=== PATIENT | female | born 1940 | race Caucasian/White ===

== ENCOUNTER 2019-07-17 07:26 | Inpatient (IN) | payer MEDICARE ==
[~2019-07-17] VITALS: Ht 160 cm; Wt 57.7 kg
[~2019-07-17 07:26] MED LIST: ALBUTEROL SULFAT2 MG PO; ALBUTEROL SULFAT4 MG PO; ALBUTEROL SULFAT8 MG; ASPIRIN EC81 M1 PO; ASPIRIN325 PO; ATORVASTATIN CA40 MG PO; ATROVENT30 ML; DILTIAZEM HCL60 MG PO; FLEXERIL PO; FORADIL12 MCG; FORMOTEROL FUMAR1 GM INH; FUROSEMIDE 40 M40 MG PO; GENTAMICIN SU3 MG/ML OP; IMDUR 30 MG TAB30 M1 PO; IPRAT-ALBUT 0.5-3 ML INH; IRON325 PO; LANOXIN 0.120.125 M1 PO; LANOXIN 0.120.125 M2 PO; LANOXIN 0.250.25 M1 PO; LEVAQUIN 500 M500 M3 PO; MIRALAX17 GM PO; MULTIVITAMINS PO; PEPCID AC20 M1 PO; PLAVIX 75 MG TA75 M1 PO; PREDNISONE 10 M10 M1; PREDNISONE 10 M10 M1 PO; PREDNISONE 20 M20 M1 PO; PROAIR HFA8.5 GM INH; PROTONIX40 M2 PO; QVAR HFA 440 MCG/UN1; QVAR HFA 880 MCG/UN1; RANEXA 500 MG500 M1 PO; SINGULAIR 10 MG10 M1 PO; TOPROL XL50 MG; ULTRAM 50MG TAB50 MG PO; VERAPAMIL HCL 880 M1 PO; [UNRECOGNIZED DRUG - OTHER]
[2019-07-17 07:29] VITALS: BP 139/67
[2019-07-17] MEDS ORDERED: RAYOS5 MG PO (07:36)
[2019-07-17 08:09] LABS: HEMATOCRIT 29.4 % (37.0-47.0); HEMOGLOBIN 9.8 gm/dL (12.0-15.0); MCH 30.6 pg (26.0-34.0); MCHC 33.4 g/dL (28.0-37.0); MCV 91.7 fL (80.0-100.0); MPV 6.6 fl. (7.2-11.1); NUCLEATED RBCS 0 /100WBC; PLATELET COUNT* 386 thou/uL (150-400); RBC 3.21 mil/uL (4.20-5.00); RDW-CV 16.1 % (10.5-14.5); WBC 19.3 thou/uL (4.0-11.0)
--- NOTE | 2019-07-17 08:18 | NUR ---
PT'S LEFT ARM WRAPPED IN WARM BLANKET. O2 SAT ELEVATED TO 94%.
[2019-07-17 08:19] LABS: APTT 22.9 Seconds (25.0-31.3); PROTIME 9.8 Seconds (9.20-11.50)
[2019-07-17 08:31] LABS: CALCIUM 9.2 mg/dL (8.5-10.1); CREATININE 0.8 mg/dL (0.6-1.3); POTASSIUM 3.9 mmol/L (3.5-5.1)
[2019-07-17 08:41] LABS: TOTAL BILIRUBIN 0.1 mg/dL (<0.1-1.0); TOTAL PROTEIN 6.3 g/dL (6.4-8.2)
--- NOTE | 2019-07-17 08:41 | NUR ---
PT TAKEN BEDSIDE CAMODE PER REQUEST AND ASSISTED WITH GETTING ON IT AND BACK IN BED. PT CONNECTED TO O2 AND STRIP CATCHER.
[2019-07-17 08:48] LABS: ABSOLUTE LYMPHOCYTES 1.4 thou/uL (0.8-5.3); ABSOLUTE MONOCYTES 0.6 thou/uL (0.0-1.2); ABSOLUTE NEUTROPHILS 17.4 thou/uL (1.6-8.1)
[2019-07-17 08:49] LABS: ANISOCYTOSIS Occasional; PLATELET ESTIMATE ADEQUATE
[2019-07-17 09:20] VITALS: BP 139/50
[2019-07-17 11:00] VITALS: BP 130/51
[2019-07-17 13:00] VITALS: BP 133/55
[2019-07-17] MEDS ORDERED: SYMBICORT160 MCG/4. INH (14:09)
[2019-07-17] MEDS ORDERED: LOPRESSOR50 MG PO (14:10)
[2019-07-17] MEDS ORDERED: KLOR-CON 10 ER10 MEQ PO (14:10)
[2019-07-17 17:51] VITALS: BP 147/74
--- NOTE | 2019-07-17 18:45 | NUR ---
PT A/O. TELE TRACKING SINUS ARRHYTHMIA. PT EXTREMELY DYSPNEIC WITH VERY MINIMAL EXERTION. PT HAD EPISODE OF NON SUSTAINED SVT THIS EVENING ASSOCIATED WITH SOA FROM JUST TURNINIG OVER IN BED- MD NOTIFIED. EDUCATED ON SAFETY AND PLAN OF CARE. PLEASE SEE ASSESSMENT FOR ADDITIONAL INFORMATION. WILL CONT TO MONITOR
[2019-07-17 20:26] VITALS: BP 125/50
[2019-07-18] VITALS (7 sets, daily range): BP systolic 128–170; BP diastolic 43–84
[2019-07-18 04:56] LABS: ABSOLUTE LYMPHOCYTES 0.3 thou/uL (0.8-5.3); ABSOLUTE MONOCYTES 0.2 thou/uL (0.0-1.2); ABSOLUTE NEUTROPHILS 11.9 thou/uL (1.6-8.1); BASOPHILS 0.1 %; HEMATOCRIT 28.8 % (37.0-47.0); HEMOGLOBIN 9.5 gm/dL (12.0-15.0); LYMPHOCYTES 2.5 %; MCH 30.4 pg (26.0-34.0); MCHC 33.1 g/dL (28.0-37.0); MCV 91.8 fL (80.0-100.0); MONOCYTES 1.7 %; MPV 6.8 fl. (7.2-11.1); NUCLEATED RBCS 0 /100WBC; PLATELET COUNT* 399 thou/uL (150-400); POLYS 95.7 %; RBC 3.14 mil/uL (4.20-5.00); RDW-CV 15.9 % (10.5-14.5); WBC 12.4 thou/uL (4.0-11.0)
[2019-07-18 05:10] LABS: CALCIUM 9.1 mg/dL (8.5-10.1); CREATININE 0.8 mg/dL (0.6-1.3); POTASSIUM 4.1 mmol/L (3.5-5.1)
--- NOTE | 2019-07-18 06:54 | NUR ---
PT IS ABLE TO COMMUNICATE HER NEEDS TO STAFF EFFECTIVELY. SHE HAS DENIED THE NEED FOR PAIN MEDICATION UP TO THIS TIME. CODE STATUS IS DNR. PT IS SOA WITH EXERTION BUT IS ABLE TO TRANSFER TO [facility]. PO CARDIZEM, BUT HR DOES STILL GET VERY TACHY AT TIMES.
--- NOTE | 2019-07-18 11:09 | EKG ---
[place] [address] ELECTROCARDIOGRAM REPORT Name: MALIHA CLAYTON Room: [address] ADM IN .R.#: [id number] Admission: 07/17/19 Attend Phys: John Waters MD Discharge: Date of : 44 Report #: [id number] THIS REPORT FOR: //name// [facility] ED Test Date: 2019-07-17 Test Time: 07:33:00 Pat Name: MALIHA CLAYTON Department: Room: [facility] Gender: F Cognos Bi Administrator: XIMENA : 1940 Requested By: Lev Rea Order Number: [id number] MD: Jesse Ta Measurements Intervals [place] Rate: 103 P: 95 AL: 168 QRS: 45 QRSD: 83 T: 48 QT: 307 QTc: 402 Interpretive Statements Sinus tachycardia Atrial premature complexes Borderline ST depression, diffuse leads Compared to ECG 02/05/2013 08:44:10 Sinus rhythm no longer present Electronically Signed On 07-18-2019 11:09:08 CDT by Jesse Ta [email or web address] <ELECTRONICALLY SIGNED> By: Jesse Ta MD, FACC 07/18/19 1109 0733 0733 Jesse Ta MD, FAC /EPI
--- NOTE | 2019-07-18 11:50 | NUR ---
MET WITH PT AND SPOUSE TO DISCUSS HOME SITUATION/DC PLANNING. PT LIVES WITH SPOUSE. HE ASSISTS HER WITH ADLS AND DOES COOKING, CLEANING, SHOPPING. PT USES WALKER, W/C, BSC AND O2 AND NEB THRU [place]. SHE TRIES TO DO MUCH SHE CAN FOR HERSELF. HAS HAD HH IN PAST BUT NOT CURRENT. DISCUSSED PALLIATIVE CARE VS HOSPICE WITH HER. SHE IS INTERESTED IN PALLIATIVE CARE AND AWARE THAT IF SHE DECIDES TO GO TO HOSPICE, THAT CAN HAPPEN. OPTIONS GIVEN AND CHOSE [facility]. CALLED AND FAXED REFERRAL TO [facility], SOMEONE FROM THEIR AGENCY WILL MEET WITH PT THIS AFTERNOON TO DISCUSS FURTHER.
--- NOTE | 2019-07-18 17:00 | EKG ---
[place] [address] ELECTROCARDIOGRAM REPORT Name: MALIHA CLAYTON Room: [address] ADM IN M.R.#: [id number] Admission: 07/17/19 Attend Phys: John Waters MD Discharge: Date of : 44 Report #: [id number] THIS REPORT FOR: //name// [facility] Test Date: 2019-07-18 Test Time: 12:15:21 Pat Name: MALIHA CLAYTON Department: Room: [address] Gender: F Certification And Selection Specialist: : 1940 Requested By: John Waters Order Number: [id number] Reading MD: Jesse Ta Measurements Intervals [place] Rate: 134 P: 87 ME: 143 QRS: 56 QRSD: 83 T: 55 QT: 307 QTc: 459 Interpretive Statements Sinus tachycardia Multiform ventricular and supraventricular premature complexes ST depression, probably rate related Compared to ECG 07/17/2019 07:33:00 Ventricular premature complex(es) now present Electronically Signed On 07-18-2019 17:00:03 CDT by Jesse Ta [email or web address] <ELECTRONICALLY SIGNED> By: Jesse Ta MD, FACC 07/18/19 1700 1215 1215 Jesse Ta MD, [facility] /EPI
[2019-07-19 00:48] VITALS: BP 135/39
[2019-07-19 04:17] VITALS: BP 130/47
--- NOTE | 2019-07-19 05:18 | NUR ---
PT IS ABLE TO COMMUNICATE HER NEEDS TO STAFF EFFECTIVELY. CURRENT PAIN MEDICATION REGIMEN HAS BEEN ADEQUATE FOR CONTROLLING HER PAIN UP TO THIS TIME. CARDIZEM GTT MAINTAINED THROUGHOUT THIS SHIFT AND UP TO THIS TIME; TOLERATED WELL BY PT THUS FAR. CODE STATUS IS DNR.
[2019-07-19 08:00] VITALS: BP 147/55
--- NOTE | 2019-07-19 08:02 | CON ---
[address] [address] CONSULTATION Name: MALIHA CLAYTON Room: [address] IN M.R.#: [id number] Admission: 07/17/19 Attend Phys: John Waters MD Discharge: Date of : 44 Report #: [id number] THIS REPORT FOR: //name// CC: John Nelsongs REQUESTING PHYSICIAN: John Waters MD REASON FOR CONSULTATION: COPD exacerbation, abnormal CT chest. DISCUSSION: The patient is a very pleasant 78-year-old woman who is well known to me. 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 She is O2, though not been steroid dependent in the past. However, after her more recent office visit, I had provided her with a taper. Plans were for her to continue with chronic steroid use in attempts to help with some of her chronic dyspnea. She presented to the Emergency Department here early yesterday morning. Had been feeling more short of breath. She was also having sensation of tachycardia and palpitations. Does have a known history of arrhythmias. She was evaluated in the ED. O2 saturations were adequate on O2 at 2 liters per nasal cannula. It is her baseline. She will increase it when she is exerting herself. She had a chest x-ray done, which revealed what appeared to be a mass on the left side. She has a CT angiogram done, which did confirm the presence of a mass. There were smaller nodules noted in the lungs as well as changes with the adrenal glands, which all could be consistent with a primary lung cancer with evidence of metastatic disease. At the time I saw her this morning, she is marginally better. Still fairly dyspneic. She has had some cough, not bringing up much in the way of mucus which she is bringing up is white. No hemoptysis. Does deny chest pain, though she has had some pain in the mid part of her back, primarily over the mid thoracic area. I do not have any recent spirometry on her. However, studies done several years ago were consistent with a very severe obstructive process with her FEV1 of 0.8 with a ratio of 37%. She has been through pulmonary rehab in the past. In the past, there was concern that she may have a nodule or an early malignancy noted on her x-rays. However, she has opted to forego any followup or evaluation of that. several years since she had any imaging studies done. We have revisited that decision with every office visit to ensure we were continuing to honor her request. At baseline, she is a DNR, though has not been enrolled in hospice care. has been mentioned to [place] [address] CONSULTATION Name: MALIHA CLAYTON Room: [address] IN [facility].#: [id number] Admission: 07/17/19 Attend Phys: John Waters MD Discharge: Date of : 44 Report #: [id number] I saw her in the office fairly recently, she was more dyspneic. Did have her take a tapering course of prednisone. When she completed that which was just last weekend, she did start prednisone on Thursday, Thursday and Thursday. I believe that is 10 mg dose. She has not had any actual chest pain. However, has had some pain in her back. She has had a history of osteoporosis and compression fractures in the past. Appetite has been only fair. No vomiting. She has had some mild diarrhea. She has lost some additional weight at home. Has not had any hemoptysis. At home, she is on the prednisone as noted. Does do DuoNeb at least 4 times a day, occasionally more. She supplements that with a rescue inhaler (ProAir). She is also on albuterol 2 mg daily twice a day; budesonide, unknown strength twice a day and O2 baseline is 2 liters, but it is increased up to between 4-6 when she is exerting herself. PAST MEDICAL HISTORY: Besides the severe COPD, remarkable for atrial arrhythmias. Does follow with survey director periodically as well, has had GI bleeding, coronary artery disease, chronic back pain due in part to compression fractures, Raynaud's phenomenon. SOCIAL HISTORY: She is . Quit smoking greater than 10 years ago. FAMILY HISTORY: Positive for cancer and lung disease. REVIEW OF SYSTEMS: Complete ROS was done. Note positives above. Poor appetite. She has lost some weight, though it is not clear how much. No recent vomiting. Has had some diarrhea. She does state up-to-date with immunizations. Family members are good at not exposing her to any illnesses. She is able to walk distances around her home until she was more short of breath last several days. When she is out, will utilize a wheelchair. Did not note any lower extremity edema. Does have a sensation of her heart racing. No anterior chest pain, it has all been in her back. No syncopal episodes. LABORATORY AND X-RAY FINDINGS: At [facility], her last echocardiogram was done 6 years ago. At that time, she had preserved systolic function. Had grade 1 diastolic dysfunction. No significant valvular heart disease. No blood gases have been done this admission. White blood cell count initially 19,300 down to 12.4 today. Hemoglobin 9.5, hematocrit of 28.8, platelets 399,000. X-rays and CT chest were reviewed. Chest x-ray suggests a large left lung mass. This is confirmed on CT angiogram. Does have a large left suprahilar mass. Smaller nodules are noted primarily in the left lung field. Emphysematous changes. Bilateral adrenal gland masses. Does have chronic compression fractures noted. IMPRESSION: [place] [address] CONSULTATION Name: MALIHA CLAYTON Room: [address] IN [facility].#: [id number] Admission: 07/17/19 Attend Phys: John Waters MD Discharge: Date of : 44 Report #: [id number] 1. Chronic obstructive pulmonary disease exacerbation. Baseline has very severe disease. She has been O2 dependent for quite some time and has been becoming steroid dependent. 2. Left suprahilar mass. Most likely has a metastatic lung cancer. She and I have had multiple discussions in the office. She had declined followup imaging, not wishing to pursue any aggressive measures if a worrisome process was identified. She continues to feel strongly about that. 3. History of gastrointestinal bleed. RECOMMENDATIONS: 1. Continue aggressive bronchodilator regimen including IV steroids. 2. Rediscussed current CT chest findings with her. She and her are aware, certainly worrisome for malignant process. As per previous discussions and she reiterated today, does not wish to undergo any invasive procedures or additional evaluation. 3. Discussed post-hospital care. At some point, she will be a candidate for hospice care and that is the approach she wishes. She is already a DNR and has been so for quite some time. Remains emphatic but that is to be honored. I think she would be an excellent candidate for palliative care in the community. Would allow her to transition over to hospice and that seems appropriate for her. <ELECTRONICALLY SIGNED> By: Rayne Rodriguez MD 07/19/19 0802 1250 1400Maraleks Rodriguez MD /nt
[2019-07-19 12:22] VITALS: BP 129/59
[2019-07-19 16:54] VITALS: BP 180/74
--- NOTE | 2019-07-19 17:57 | NUR ---
ASSUSSMED CARE OF PT APPROX 0730. REASSESSMENT COMPLETED CHARTED. MEDICATIONS GIVEN CHARTED. PT WAS VERY SOA THIS AM. PLACED CALL TO RESPIRATORY APPROX 0900, RT STATED THEY WERE GETTING MEDICATIONS FOR PT. APPROX 1000 PLACED ANOTHER CALL TO RT FOR BREATHING TX FOR PT. DISCUSSED WITH PHYSICAN PTS STATUS, NEW ORDERS PLACED, MEDICATION GIVEN. PT RECIEVED BREATHING TX. RESPIRATORY STATUS HAD SOME IMPROVEMENT AFTER BREATHING TX. PTS RESPIRATORY STATUS HAD IMPROVEMENT WITH LOW DOSE MORPHINE, GIVEN NEEDED. SAFTEY PRECAUTIONS IN PLACE. CALL LIGHT WITHIN REACH. HOURLY ROUNDING FOR NEEDS AND SAFTEY.
[2019-07-20 00:39] VITALS: BP 125/50
[2019-07-20 04:00] VITALS: BP 149/44
[2019-07-20 05:29] LABS: ABSOLUTE LYMPHOCYTES 0.1 thou/uL (0.8-5.3); ABSOLUTE MONOCYTES 0.6 thou/uL (0.0-1.2); ABSOLUTE NEUTROPHILS 9.3 thou/uL (1.6-8.1); HEMATOCRIT 26.1 % (37.0-47.0); HEMOGLOBIN 8.8 gm/dL (12.0-15.0); LYMPHOCYTES 1.4 %; MCH 30.6 pg (26.0-34.0); MCHC 33.7 g/dL (28.0-37.0); MCV 90.7 fL (80.0-100.0); MONOCYTES 5.8 %; MPV 6.8 fl. (7.2-11.1); NUCLEATED RBCS 0 /100WBC; PLATELET COUNT* 343 thou/uL (150-400); POLYS 92.8 %; RBC 2.88 mil/uL (4.20-5.00); RDW-CV 15.8 % (10.5-14.5); WBC 10.1 thou/uL (4.0-11.0)
[2019-07-20 05:36] LABS: CALCIUM 8.8 mg/dL (8.5-10.1); CREATININE 0.6 mg/dL (0.6-1.3); POTASSIUM 4.1 mmol/L (3.5-5.1)
--- NOTE | 2019-07-20 07:02 | NUR ---
PT HAS HAD RESPIRATORY DISTRESS OFF AND ON. MORPHINE SOMEWHAT EFFECTIVE. PT HAD SOA WITH EXERTION/UP TO COMMODE. PUT PT ON PUREWICK TO AVOID EXERTION. PT "DIDNT WANT TO TAKE MUCH MORPHINE" B/C IT HAD MADE HER DIZZY IN DAY SHIFT AFTER THE THIRD DOSE. ENCOURAGED MORPHINE WHEN AVAILABLE. PT TRACING AFIB/TACHY ON CARDIZEM DRIP @ 20CC/HR THROUGH THE NIGHT. CALL LIGHT IN REACH. HOURLY ROUNDING FOR SAFETY.
[2019-07-20 08:00] VITALS: BP 164/64
[2019-07-20 11:58] VITALS: BP 179/61
--- NOTE | 2019-07-20 12:09 | NUR ---
CONTINUE TO FOLLOW, MET WITH PT AND SPOUSE ON ROUNDS WITH DR COTE. DISCUSSED POC AND POSSIBLE HOSPICE AT [place] NOW IF PT AGREES. WILL RE -EVAL TOMORROW AND DISCUSS FURTHER WITH PT AND SPOUSE. PT UNDERSTANDS
[2019-07-20 17:09] VITALS: BP 172/62
--- NOTE | 2019-07-20 19:45 | NUR ---
PT VSS WITH EXCEPTION ON TACHYCARDIA RELATED TO AFIB ON TELE, REASSESSMENT CHARTED, PT ON BEDREST, MOVEMENT CAUSES SOA. POSSESSION AND CALL LIGHT WITHIN REACH, HOURLY ROUNDING PERFORMED, A&OX4
[2019-07-20 20:00] VITALS: BP 150/45
[2019-07-21] VITALS: BP 160/62
[2019-07-21 08:00] VITALS: BP 154/59
--- NOTE | 2019-07-21 11:32 | NUR ---
apollo received call from [facility]. Gabe stated they are waiting on "one more piece of equipment" and asked if pt can wait to d/c until tomorrow morning and she will schedule for her staff to arrive at pt's home at noon. pt nurse informed and stated that doctor was okay w/plan to d/c tommorow.
[2019-07-21 11:40] VITALS: BP 148/60
[2019-07-21 16:36] VITALS: BP 142/58
[2019-07-21 20:00] VITALS: BP 173/59
--- NOTE | 2019-07-21 20:49 | NUR ---
PT VSS WITH EXCEPTION OF TACHYCARDIA/AFIB ON TELE. PT HAS EXTREME SOA WITH ANY MOVEMENT. O2 VIA NC@2L. A&OX4, BEDREST, POSSESSIONS AND CALL LIGHT WITHIN REACH. HOURLY ROUNDING PERFORMED. FAMILY VISITED PT ALL DAY.
[2019-07-22] VITALS: BP 135/49
[2019-07-22 04:00] VITALS: BP 155/65
--- NOTE | 2019-07-22 11:19 | NUR ---
ORDERS IN PLACE FOR PT TO RETURN HOME WITH HOSPICE. DISCUSSED WITH NURSE AND NEEDING ADD'L TIME TO COMPLETE PAPERWORK. RESCHEDULED HOSPICE TO BE THERE AT 4PM. EXPLAINED TIME CHANGE FROM PREVIOUSLY ARRANGED AND APOLOGIZED TO PT/FAMILY. CONFIRMED ALL EQUIPMENT IN PLACE AT HOME WITH GI/ HOSPICE AND PT. WILL ARRANGE AMBULANCE FOR 230PM. ORDERS FAXED TO HOSPICE. PT SIGNED OUT OF HOSPITAL DNR AND GAVE PT COPY AND ONE FOR AMBULANCE ON PAPERWORK. UPDATED SIMON OTTO OF PLAN. PT IN AGREEMENT WITH PLAN.
[2019-07-22 11:23] VITALS: BP 155/65
[2019-07-22] MEDS ORDERED: PROTONIX40 M2 PO (11:47)
[2019-07-22] MEDS ORDERED: DURAGESIC1 EAC5 TP (11:51)
[2019-07-22 12:06] VITALS: BP 155/55
--- NOTE | 2019-07-22 12:36 | EKG ---
[place] [address] ELECTROCARDIOGRAM REPORT Name: MALIHA CLAYTON Room: [address] ADM IN M.R.#: [id number] Admission: 07/17/19 Attend Phys: John Waters MD Discharge: Date of : 44 Report #: [id number] THIS REPORT FOR: //name// [facility] Test Date: 2019-07-21 Test Time: 21:40:55 Pat Name: MALIHA CLAYTON Department: Room: [address] Gender: F Mill Tender Second Operator: LISA : 1940 Requested By: John Waters Order Number: [id number] Reading MD: Himanshu Villa Measurements Intervals [place] Rate: 138 P: 93 AR: 143 QRS: 65 QRSD: 77 T: 135 QT: 245 QTc: 371 Interpretive Statements Atrial fib. RVR Repolarization abnormality, prob rate related Compared to ECG 07/18/2019 12:15:21 Early repolarization now present Sinus tachycardia no longer present ST (T wave) deviation no longer present Electronically Signed On 07-22-2019 12:36:38 CDT by Himanshu Villa [email or web address] <ELECTRONICALLY SIGNED> By: Kirsten Villa MD, FACC 07/22/19 1236 39 39 Kirsten Villa MD, FACC /EPI
== END 2019-07-22 14:45 | disposition hospice, home (50) | DRG 871 ==
LOC: M.ERS 07:26 → M.TBA-ER 08:44 → M.2W 08:44
PROVIDERS: Family Medicine; ADMIT Internal Medicine
DX: A41.9 Sepsis, unspecified organism (principal); E43 Unspecified severe protein-calorie malnutrition; J18.9 Pneumonia, unspecified organism; J96.21 Acute and chronic respiratory failure with hypoxia; I48.92 Unspecified atrial flutter; E87.1 Hypo-osmolality and hyponatremia; I50.9 Heart failure, unspecified; I11.0 Hypertensive heart disease with heart failure; I73.9 Peripheral vascular disease, unspecified; R91.8 Other nonspecific abnormal finding of lung field; I25.10 Atherosclerotic heart disease of native coronary artery without angina pectoris; G89.29 Other chronic pain; M54.9 Dorsalgia, unspecified; J43.9 Emphysema, unspecified; Z66 Do not resuscitate; I49.9 Cardiac arrhythmia, unspecified; I48.91 Unspecified atrial fibrillation; D64.9 Anemia, unspecified; Z51.5 Encounter for palliative care; Z99.81 Dependence on supplemental oxygen; Z90.710 Acquired absence of both cervix and uterus; Z79.82 Long term (current) use of aspirin; Z79.899 Other long term (current) drug therapy; Z80.9 Family history of malignant neoplasm, unspecified; Z83.6 Family history of other diseases of the respiratory system; Z87.891 Personal history of nicotine dependence; Z68.22 Body mass index [BMI] 22.0-22.9, adult